=== PATIENT | female | born 1975 | race African-American/Black ===

== ENCOUNTER 2019-01-14 13:34 | Emergency (ER) | payer MEDICAID ==
[~2019-01-14] VITALS: Ht 157.5 cm; Wt 65.0 kg
[2019-01-14 18:27] LABS: CLARITY URINE CLEAR (CLEAR); COLOR URINE YELLOW (YELLOW); KETONES URINE NEGATIVE (NEGATIVE); LEUKOCYTE ESTERASE URINE NEGATIVE (NEGATIVE); NITRITE URINE NEGATIVE (NEGATIVE); OCCULT BLOOD URINE NEGATIVE (NEGATIVE); PH URINE 6.5 (4.5-8.0); PROTEIN URINE NEGATIVE (NEGATIVE); SPECIFIC GRAVITY URINE 1.023 (1.005-1.030); UROBILINOGEN URINE 0.2 E.U./dL (0.2-1.0)
[2019-01-14 19:12] VITALS: BP 110/60
== END 2019-01-14 19:13 | disposition home or self-care (01) ==
LOC: ER 13:34
DX: L29.9 Pruritus, unspecified (principal); R50.9 Fever, unspecified; M79.10 Myalgia, unspecified site; F20.9 Schizophrenia, unspecified; F31.9 Bipolar disorder, unspecified
CPT/HCPCS: 99283